=== PATIENT | female | born 1960 | race Caucasian/White ===

== ENCOUNTER 2023-08-24 23:08 | Inpatient (IN) ==
[2023-08-25 00:38] LABS: ABS Lymphocytes 1.7 10^3/uL (1.0-4.8); ABS Monocytes 0.5 10^3/uL (0.0-0.9); ABS Neutrophils 7.9 10^3/uL (1.5-7.6); Eosinophil % 0.2 %; Hematocrit 42.5 % (35-45); Hemoglobin 14.4 g/dL (11.5-14.3); Lymphocyte % 17.1 %; Mean Corpuscular Hemoglobin 33.4 pg (27-33); Mean Corpuscular Volume 98.2 fL (80-97); Mean Platelet Volume 7.7 fL (7.5-11.2); Platelet Count 348 10^3/uL (150-450); Red Blood Count 4.33 10^6/uL (3.63-4.92); Red Cell Distribution Width 13.7 % (12-17); White Blood Count 10.2 10^3/uL (3.8-11.8)
[2023-08-25] MEDS: Ondansetron 4 mg VIAL 2 MG/ML 2 ml VIAL IV ONE (01:00)
[2023-08-25] MEDS: fentaNYL 100 mcg/2 ml 50 MCG/ML VIAL IV SLOW PU ONE (01:01)
[2023-08-25 01:09] LABS: Albumin 4.6 g/dL (3.2-5.2); Albumin/Globulin Ratio 1.6 (1-3); Calcium 9.3 mg/dL (8.6-10.3); Creatinine, Serum 0.86 mg/dL (0.51-0.95); Globulin 2.8 g/dL (2-4); Potassium 4.1 mmol/L (3.5-5.0); Total Bilirubin 0.4 mg/dL (0.2-1.0); Total Protein 7.4 g/dL (6.4-8.9); eGFR CKD-EPI 74.9 (>60)
[2023-08-25 01:47] LABS: Activated Partial Thrombo Time 25.5 seconds (26.0-38.0); INR 0.89 (0.83-1.13)
[2023-08-25] MEDS: Acetaminophen IV 1 GM/100ML 1,000 MG/100 ML BAG IV ONE (02:00)
[2023-08-25] MEDS: NS 0.9% 1000 ml BAG 1,000 ML IV SCH (03:52)
[2023-08-25] MEDS: Ondansetron 4 mg VIAL 2 MG/ML 2 ml VIAL IV PRN (03:53)
[2023-08-25] MEDS ORDERED: Lorazepam PYXIS KEY PRN (03:58)
[2023-08-25] MEDS ORDERED: LORazepam 2 mg VIAL 1 ml IV PUSH SCH (04:00)
[2023-08-25] MEDS: Morphine 4 MG/ML VIAL (1 ml) IV ONE (04:00)
[2023-08-25 06:13] LABS: Urine Appearance Turbid; Urine Bilirubin Negative (Negative); Urine Blood Negative (Negative); Urine Color Light-Yellow; Urine Glucose Negative (Negative); Urine Ketones 1+ (Negative); Urine Nitrite Negative (Negative); Urine Protein Negative (Negative); Urine Specific Gravity 1.018 (1.002-1.030); Urine Urobilinogen Negative (Negative); Urine pH 5.5 (5.0-8.0)
[2023-08-25 07:32] LABS: Urine Bacteria 1+ /HPF (Absent); Urine Red Blood Cell Trace(0-2/hpf) /HPF (0-Trace); Urine Squamous Epithelial Cell Present /HPF (Absent); Urine White Blood Cell 3+(>20/hpf) /HPF (0-Trace)
[2023-08-25] MEDS ORDERED: Senna TAB 8.6 mg TAB PO PRN (08:53)
[2023-08-25] MEDS ORDERED: Polyethylene Glycol 3350 17 GM PACKET PO PRN (08:53)
[2023-08-25] MEDS ORDERED: Morphine 2 MG/ML SYRINGE IV PRN (08:53)
[2023-08-25] MEDS ORDERED: ROPIVACAINE 5 MG/ML 30 ML BTL (0.5%) ONE (09:06)
[2023-08-25] MEDS ORDERED: Naloxone 0.4 mg VIAL 0.4 mg/ml 1 ml VIAL IV PRN (09:07)
[2023-08-25] MEDS ORDERED: Morphine 4 MG/ML VIAL (1 ml) IV PRN (09:07)
[2023-08-25] MEDS ORDERED: Midazolam 2 mg/2 ml VIAL 1 mg/ml 2 ml VIAL (2 mg) ONE (09:49)
[2023-08-25] MEDS ORDERED: fentaNYL 100 mcg/2 ml 50 MCG/ML VIAL ONE ×4 (09:49→13:36)
[2023-08-25] MEDS ORDERED: ceFAZolin 2 GM in NS PREMIX 2 GM/100 ML BAG IVPB ONE (09:51)
[2023-08-25] MEDS ORDERED: Lidocaine 2% PF 5 ML VIAL ONE (09:51)
[2023-08-25] MEDS ORDERED: Propofol 10 MG/ML 20 ML BTL ONE (09:51)
[2023-08-25] MEDS ORDERED: Rocuronium 50 mg VIAL 10 mg/ml 5 ml VIAL (50 mg) ONE (09:51)
[2023-08-25] MEDS ORDERED: Dexamethasone IV 4 MG/ML VIAL 1 ml VIAL ONE (11:57)
[2023-08-25] MEDS ORDERED: Ondansetron 4 mg VIAL 2 MG/ML 2 ml VIAL ONE (12:54)
[2023-08-25] MEDS: fentaNYL 100 mcg/2 ml 50 MCG/ML VIAL IV PRN (14:15)
[2023-08-25] MEDS: Multivitamins/Minerals TAB PO SCH (16:33)
[2023-08-25] MEDS: ceFAZolin 1 GM ADVAN 1 GM in NS 0.9% 50 ML 50 ML IVPB SCH (20:59)
[2023-08-26 05:42] LABS: ABS Lymphocytes 1.5 10^3/uL (1.0-4.8); ABS Monocytes 1.2 10^3/uL (0.0-0.9); ABS Neutrophils 7.3 10^3/uL (1.5-7.6); Hematocrit 30.7 % (35-45); Hemoglobin 10.6 g/dL (11.5-14.3); Lymphocyte % 15.2 %; Mean Corpuscular Hgb Conc 34.4 g/dL (31-36); Mean Corpuscular Volume 98.9 fL (80-97); Mean Platelet Volume 9.3 fL (7.5-11.2); Platelet Count 221 10^3/uL (150-450); Red Blood Count 3.11 10^6/uL (3.63-4.92); Red Cell Distribution Width 13.5 % (12-17)
[2023-08-26 05:59] LABS: Anion Gap 10 mmol/L (2-16); Blood Urea Nitrogen 16 mg/dL (6-24); CO2 Carbon Dioxide 24 mmol/L (22-32); Calcium 8.8 mg/dL (8.6-10.3); Chloride 103 mmol/L (101-111); Creatinine, Serum 0.78 mg/dL (0.51-0.95); Glucose 134 mg/dL (70-100); Potassium 4.6 mmol/L (3.5-5.0); Sodium 137 mmol/L (135-145); eGFR CKD-EPI 84.2 (>60)
[2023-08-26 06:24] LABS: Folate > 20.00 ng/mL (5.90-24.80)
[2023-08-26 06:25] LABS: Vitamin B12 604 pg/mL (180-914)
[2023-08-27 07:04] LABS: ABS Basophils 0.1 10^3/uL (0.0-0.1); ABS Eosinophils 0.1 10^3/uL (0.0-0.5); ABS Lymphocytes 2.2 10^3/uL (1.0-4.8); ABS Monocytes 0.7 10^3/uL (0.0-0.9); ABS Neutrophils 5.4 10^3/uL (1.5-7.6); Eosinophil % 0.6 %; Hematocrit 26.9 % (35-45); Hemoglobin 9.3 g/dL (11.5-14.3); Lymphocyte % 26.1 %; Mean Corpuscular Hemoglobin 34.4 pg (27-33); Mean Corpuscular Hgb Conc 34.7 g/dL (31-36); Mean Corpuscular Volume 99.2 fL (80-97); Mean Platelet Volume 8.5 fL (7.5-11.2); Platelet Count 237 10^3/uL (150-450); Red Blood Count 2.72 10^6/uL (3.63-4.92); Red Cell Distribution Width 13.4 % (12-17); White Blood Count 8.5 10^3/uL (3.8-11.8)
[2023-08-27 07:27] LABS: Calcium 8.3 mg/dL (8.6-10.3); Creatinine, Serum 0.59 mg/dL (0.51-0.95); Potassium 4.6 mmol/L (3.5-5.0)
[2023-08-27 10:23] VITALS: BP 145/85
== END 2023-08-27 16:20 | disposition home or self-care (01) | DRG 482 ==
LOC: ED 23:08 → EDHOLD 23:08 → SSU 08-25 07:11 → SUATTDRO 08-25 09:22
PROVIDERS: ADMIT Internal Medicine; ATTEND Internal Medicine